=== PATIENT | female | born 1985 | race Caucasian/White ===

== ENCOUNTER 2019-03-09 11:43 | Inpatient (IN) | payer OTHER ==
[2019-03-09] MEDS ORDERED: CARBOPROST 250 MCG INJ IM ×2 (12:30→16:30)
[2019-03-09] MEDS ORDERED: METHYLERGONOVINE 0.2 MG INJ IM ×2 (12:30→16:30)
[2019-03-09] MEDS ORDERED: MISOPROSTOL 200 MCG TAB PR ×2 (12:30→16:30)
[2019-03-09] MEDS ORDERED: OXYTOCIN 30 UNITS/LR 500 ML IV ×3 (12:30→16:30)
[2019-03-09 13:01] LABS: ADD MAN DIFF? NO
[2019-03-09] MEDS: LACTATED RINGER'S 1,000 ML IV ×4 (13:01→20:20)
[2019-03-09 13:02] LABS: ABNORMAL IP MESSAGE 1; BASOPHILS % 0.2 % (0.0-2.0); EOSINOPHILS # 0.1 10^3/ul (0.0-0.5); HEMATOCRIT 39.4 % (37.0-47.0); HEMOGLOBIN 12.8 g/dl (12.0-16.0); LYMPHOCYTES % 18.7 % (15.0-51.0); MEAN CORPUSCULAR HEMOGLOBIN 28.4 pg (29.0-33.0); MEAN CORPUSCULAR HGB CONC 32.5 g/dl (32.0-37.0); MEAN CORPUSCULAR VOLUME 87.4 fl (82.0-101.0); MONOCYTE # 0.6 10^3/ul (0.3-0.9); MONOCYTES % 5.4 % (0.0-11.0); NEUTROPHILS % 74.1 % (39.0-77.0); PLATELET COUNT 131 10^3/UL (140-415); RED BLOOD COUNT 4.51 10^6/ul (4.20-5.40); RED CELL DISTRIBUTION WIDTH 14.3 % (11.5-14.5)
[2019-03-09 13:02] LABS: WHITE BLOOD COUNT 10.7 10^3/ul (4.8-10.8)
[2019-03-09 13:06] LABS: MEAN PLATELET VOLUME 13.9 fl (7.4-10.4); POSITIVE DIFF @See below
[2019-03-09 13:21] LABS: INR 0.87; PROTIME 11.9 Sec (11.9-14.9); PT RATIO 0.9
[2019-03-09 13:22] LABS: PARTIAL THROMBOPLASTIN TIME 25.7 Sec (23.0-35.0)
[2019-03-09 13:54] LABS: HEPATITIS B SURFACE ANTIGEN NEGATIVE (NEGATIVE)
[2019-03-09] MEDS: CITRIC ACID/NA CITRATE 30 ML CUP PO (14:12)
[2019-03-09] MEDS: METOCLOPRAMIDE 10 MG INJ IV (14:12)
[2019-03-09] MEDS: FAMOTIDINE 20 MG INJ IV (14:12)
[2019-03-09] MEDS ORDERED: morphine SULFATE/PF (10 MG/10 ML) INJ (15:03)
[2019-03-09] MEDS: CEFAZOLIN 3 GM in DEXTROSE 5% 100 ML IV (15:04)
[2019-03-09] MEDS ORDERED: PHENYLephrine (100 MCG/ML) 10ML SYG (15:22)
[2019-03-09] MEDS ORDERED: MEPERIDINE 25 MG INJ IV (15:30)
[2019-03-09] MEDS ORDERED: PROCHLORPERAZINE 10 MG INJ IV (15:30)
[2019-03-09] MEDS ORDERED: KETOROLAC 30 MG INJ IV (15:30)
[2019-03-09] MEDS ORDERED: DIPHENHYDRAMINE 50 MG INJ IV (15:30)
[2019-03-09] MEDS ORDERED: FENTAnyl 50 MCG/ML VIAL IV ×3 (15:30)
[2019-03-09] MEDS ORDERED: HYDROmorphONE 1 MG/5 ML IV SYRINGE IV ×3 (15:30)
[2019-03-09] MEDS ORDERED: ONDANSETRON 4 MG INJ IV ×2 (15:30→17:00)
[2019-03-09] MEDS ORDERED: ONDANSETRON 4 MG INJ (15:31)
[2019-03-09] MEDS ORDERED: MIDAZOLAM 1 MG/ML 2 ML INJ (15:34)
[2019-03-09] MEDS ORDERED: EPHEDrine 25 MG/5 ML SYG (15:39)
[2019-03-09] MEDS ORDERED: MEPERIDINE 100 MG INJ (15:50)
[2019-03-09] MEDS ORDERED: HYDROCODONE/APAP (5/325) TAB PO ×2 (16:30)
[2019-03-09] MEDS ORDERED: METHYLERGONOVINE 0.2 MG TAB PO (16:30)
[2019-03-09] MEDS ORDERED: IBUPROFEN 800 MG TAB PO (16:30)
[2019-03-09] MEDS: OXYTOCIN 30 UNITS/LR 500 ML IV ×2 (16:54→21:35)
[2019-03-09] MEDS ORDERED: NALOXONE (0.4 MG/ML) INJ IV (17:00)
[2019-03-09] MEDS ORDERED: ZOLPIDEM 5 MG TAB PO (17:00)
[2019-03-09] MEDS ORDERED: HYDROmorphONE 0.5 MG/0.5 ML SYG IV (17:00)
[2019-03-09 18:13] LABS: AMPHETAMINE/METHAMPHETAMINE Negative (NEGATIVE); BARBITURATES Negative (NEGATIVE); BENZODIAZEPINES Negative (NEGATIVE); CANNABINOIDS Negative (NEGATIVE); COCAINE Negative (NEGATIVE); OPIATES Positive (NEGATIVE)
[2019-03-09] MEDS: DIPHENHYDRAMINE 50 MG INJ IV (19:00)
[2019-03-09 21:31] LABS: RAPID PLASMA REAGIN NONREACTIVE (NR)
[2019-03-09] MEDS: SENNA/DOCUSATE NA (8.6MG/50MG) TAB PO (21:34)
[2019-03-10] MEDS: DIPHENHYDRAMINE 50 MG INJ IV (00:33)
[2019-03-10] MEDS: KETOROLAC 30 MG INJ IV ×2 (05:19→15:46)
[2019-03-10] MEDS: LACTATED RINGER'S 1,000 ML IV ×2 (06:14→14:15)
[2019-03-10 08:22] LABS: ADD MAN DIFF? NO
[2019-03-10 08:28] LABS: WHITE BLOOD COUNT 12.9 10^3/ul (4.8-10.8)
[2019-03-10 08:28] LABS: ABNORMAL IP MESSAGE 1; BASOPHILS % 0.2 % (0.0-2.0); EOSINOPHILS # 0.1 10^3/ul (0.0-0.5); EOSINOPHILS % 0.5 % (0.0-7.0); HEMATOCRIT 34.6 % (37.0-47.0); LYMPHOCYTES # 1.6 10^3/ul (0.8-2.9); LYMPHOCYTES % 12.5 % (15.0-51.0); MEAN CORPUSCULAR HEMOGLOBIN 28.3 pg (29.0-33.0); MEAN CORPUSCULAR HGB CONC 31.8 g/dl (32.0-37.0); MEAN CORPUSCULAR VOLUME 88.9 fl (82.0-101.0); MEAN PLATELET VOLUME 13.8 fl (7.4-10.4); MONOCYTE # 0.8 10^3/ul (0.3-0.9); MONOCYTES % 6.5 % (0.0-11.0); NEUTROPHIL # 10.3 10^3/ul (1.6-7.5); NEUTROPHILS % 79.9 % (39.0-77.0); PLATELET COUNT 109 10^3/UL (140-415); RED BLOOD COUNT 3.89 10^6/ul (4.20-5.40); RED CELL DISTRIBUTION WIDTH 14.2 % (11.5-14.5)
[2019-03-10 08:36] LABS: POSITIVE DIFF @See below
[2019-03-10 08:48] LABS: ANION GAP 8 (5-13); BLOOD UREA NITROGEN 7 mg/dl (7-20); CALCIUM 8.3 mg/dl (8.4-10.2); CARBON DIOXIDE 24 mmol/L (21-31); CHLORIDE 102 mmol/L (97-110); CREATININE 0.56 mg/dl (0.44-1.00); Estimated GFR > 60 mL/min (>60); GLUCOSE 80 mg/dl (70-220); SODIUM 134 mmol/L (135-144)
[2019-03-10] MEDS: SENNA/DOCUSATE NA (8.6MG/50MG) TAB PO ×2 (09:53→21:24)
[2019-03-10] MEDS: HYDROmorphONE 0.5 MG/0.5 ML SYG IV (10:24)
[2019-03-11] MEDS: HYDROCODONE/APAP (5/325) TAB PO ×2 (04:26→11:47)
[2019-03-11] MEDS: SENNA/DOCUSATE NA (8.6MG/50MG) TAB PO ×2 (08:44→21:35)
[2019-03-11] MEDS: LANOLIN HPA 1 PKT TOP ×2 (11:47)
[2019-03-11] MEDS: IBUPROFEN 800 MG TAB PO ×2 (11:47→23:20)
[2019-03-11] MEDS: MAGNESIUM HYDROXIDE 30ML CUP PO (17:43)
[2019-03-12] MEDS: MAGNESIUM HYDROXIDE 30ML CUP PO (05:17)
[2019-03-12] MEDS: BISACODYL 10 MG SUPP PR ×2 (06:22→10:00)
[2019-03-12 08:17] LABS: ADD MAN DIFF? NO
[2019-03-12 08:25] LABS: ABNORMAL IP MESSAGE 1; BASOPHILS % 0.4 % (0.0-2.0); EOSINOPHILS # 0.4 10^3/ul (0.0-0.5); EOSINOPHILS % 3.7 % (0.0-7.0); HEMATOCRIT 33.1 % (37.0-47.0); HEMOGLOBIN 10.4 g/dl (12.0-16.0); LYMPHOCYTES # 1.9 10^3/ul (0.8-2.9); LYMPHOCYTES % 17.1 % (15.0-51.0); MEAN CORPUSCULAR HGB CONC 31.4 g/dl (32.0-37.0); MEAN CORPUSCULAR VOLUME 89.2 fl (82.0-101.0); MEAN PLATELET VOLUME 13.6 fl (7.4-10.4); MONOCYTE # 0.7 10^3/ul (0.3-0.9); MONOCYTES % 5.9 % (0.0-11.0); NEUTROPHILS % 72.4 % (39.0-77.0); PLATELET COUNT 142 10^3/UL (140-415); RED BLOOD COUNT 3.71 10^6/ul (4.20-5.40); RED CELL DISTRIBUTION WIDTH 14.7 % (11.5-14.5)
[2019-03-12 08:25] LABS: WHITE BLOOD COUNT 11.1 10^3/ul (4.8-10.8)
[2019-03-12 08:28] LABS: POSITIVE DIFF @See below
[2019-03-12] MEDS: SENNA/DOCUSATE NA (8.6MG/50MG) TAB PO (09:00)
[2019-03-12] MEDS: DIPHTH/TET/ACEL PERTUSS (ADULT) 0.5 ML VIAL IM* (09:00)
[2019-03-12] MEDS: MEASLES,MUMPS,RUBELLA VACCINE INJ SC* (09:00)
[2019-03-12] MEDS: HYDROCODONE/APAP (5/325) TAB PO (11:51)
== END 2019-03-12 12:45 | disposition home or self-care (01) | DRG 788 ==
LOC: L-D 11:43 → PP1 18:42
PROVIDERS: Obstetrics & Gynecology
PROC: 10D00Z1 Extraction of Products of Conception, Low, Open Approach (ICD-10-PCS; principal; 2019-03-09 14:00)
DX: O65.5 Obstructed labor due to abnormality of maternal pelvic organs (principal); O34.211 Maternal care for low transverse scar from previous cesarean delivery; O99.214 Obesity complicating childbirth; E66.9 Obesity, unspecified; Z3A.39 39 weeks gestation of pregnancy; Z37.0 Single live birth
CPT/HCPCS: 80048; 80307; 85025; 85610; 85730; 86592; 86850; 86900; 86901; 87340; 99464